=== PATIENT | male | born 1960 | race Caucasian/White ===

== ENCOUNTER 2017-06-07 14:29 | Inpatient (IN) | payer OTHER, SELFPAY ==
[2017-06-07 15:10] LABS: Hemoglobin 8.3 g/dL (14.0-18.0); Mean Corpuscular HGB CONC 29.8 g/dL (32.0-36.0); Mean Corpuscular Hemoglobin 24.7 pg (27.0-31.0); Mean Platelet Volume 7.4 fL (7.4-10.4); Platelet Count 197 thou/uL (130-400); RBC Distribution Width 18.6 % (11.5-14.5); Red Blood Cell (RBC) Count 3.34 mill/uL (4.70-6.10); White Blood Cell (WBC) Count 11.3 thou/uL (4.8-10.8)
[2017-06-07 15:29] LABS: #Basophils 0.1 thou/uL (0.0-0.2); #Eosinphils 0.1 thou/uL (0.0-0.7); #Lymphocytes 1.9 thou/uL (1.20-3.40); #Monocytes 0.4 thou/uL (0.11-0.59); #Neutrophils 8.9 thou/uL (1.40-6.50); %Basophils 0.7 % (0.0-1.0); %Eosinophils 0.5 % (0.0-10.0); %Lymphocytes 16.4 % (21.0-51.0); %Monocytes 3.9 % (0.0-10.0); %Neutrophils 78.5 % (42.0-75.0); Anisocytosis SLIGHT = 6-15 cells (100X) (0-5/hpf); MDiff Complete? YES; Microcytosis SLIGHT = 6-15 cells (100X) (0-5/hpf); PLT Morphology Comment Appears Adequate
[2017-06-07 15:36] LABS: CKMB 0.3 ng/mL (0-6.6); Troponin I Less than 0.010 ng/mL (< 0.028)
[2017-06-07 15:42] LABS: ALT (SGPT) 38 U/L (8-55); AST (SGOT) 30 U/L (5-34); Alkaline Phosphatase 405 U/L (40-150); Anion Gap 17 mmol/L (10-20); BUN (Urea Nitrogen) 13 mg/dL (8.4-25.7); Bilirubin, Total 1.4 mg/dL (0.2-1.2); CK (CPK) 19 U/L (30-200); Calc. Creatinine Clearance 0 mL/min (70-130); Calcium 8.7 mg/dL (7.8-10.44); Carbon Dioxide 20 mmol/L (22-29); Chloride 99 mmol/L (98-107); Estimated GFR-MDRD Greater than 90; Globulin 4.1 g/dL (2.4-3.5); Glucose 106 mg/dL (70-105); Potassium 4.3 mmol/L (3.5-5.1); Protein, Total 7.1 g/dL (6.0-8.3); Sodium 132 mmol/L (136-145)
--- NOTE | 2017-06-07 16:10 | RAD ---
PORTABLE CHEST ONE VIEW: 06/07/2017 4;04 p.m. HISTORY: A 57-year-old male with anemia, lymphoma, and shortness of breath. COMPARISON: There are no previous exams for comparison. FINDINGS: The heart size is mildly enlarged. There are mild infiltrates in the left lower lung. No pneumothor ax or pleural effusions are seen. IMPRESSION: Findings are suspicious for pneumonia. POS: [facility]
[2017-06-07] MEDS ORDERED: Acetaminophen 500 MG TAB ONE (16:29)
[2017-06-07] MEDS ORDERED: Guaifenesin DM 100-10/5 ML UDCUP PO PRN (19:40)
[2017-06-07] MEDS ORDERED: Albuterol Sulfate 1.25 MG/3 ML NEB NEB PRN (19:40)
[2017-06-07 20:44] LABS: Iron 19 ug/dL (65-175); Iron Binding Capacity, Total 200 mcg/dL (261-462); LDH 221 U/L (125-220)
[2017-06-07 21:21] LABS: Folate (Folic Acid) 3.5 ng/mL (7.0-31.4)
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
[2017-06-07] MEDS: Famotidine 20 MG TAB PO SCH (22:18)
[2017-06-07] MEDS: Sodium Chloride 0.9% 1,000 ML IV SCH (22:21)
[2017-06-07 23:36] VITALS: BMI 23.8
[2017-06-08] MEDS: Acetaminophen 325 MG TAB PO PRN ×3 (05:19→21:41)
[2017-06-08 06:03] LABS: #Eosinphils 0.1 thou/uL (0.0-0.7); #Lymphocytes 1.4 thou/uL (1.20-3.40); #Monocytes 0.7 thou/uL (0.11-0.59); #Neutrophils 6.3 thou/uL (1.40-6.50); %Basophils 0.2 % (0.0-1.0); %Eosinophils 0.6 % (0.0-10.0); %Lymphocytes 16.5 % (21.0-51.0); %Monocytes 8.2 % (0.0-10.0); %Neutrophils 74.5 % (42.0-75.0); Hemoglobin 6.2 g/dL (14.0-18.0); Mean Corpuscular HGB CONC 30.6 g/dL (32.0-36.0); Mean Corpuscular Hemoglobin 25.3 pg (27.0-31.0); Mean Corpuscular Volume 82.5 fl (80.0-94.0); Mean Platelet Volume 6.9 fL (7.4-10.4); Platelet Count 156 thou/uL (130-400); RBC Distribution Width 18.7 % (11.5-14.5); Red Blood Cell (RBC) Count 2.45 mill/uL (4.70-6.10); White Blood Cell (WBC) Count 8.5 thou/uL (4.8-10.8)
[2017-06-08 06:26] LABS: Anion Gap 11 mmol/L (10-20); BUN (Urea Nitrogen) 11 mg/dL (8.4-25.7); Calc. Creatinine Clearance 140 mL/min (70-130); Carbon Dioxide 23 mmol/L (22-29); Chloride 101 mmol/L (98-107); Estimated GFR-MDRD Greater than 90; Glucose 90 mg/dL (70-105); Potassium 4.2 mmol/L (3.5-5.1); Sodium 131 mmol/L (136-145)
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
[2017-06-08] MEDS: Sodium Chloride 0.9% 1,000 ML IV SCH ×2 (10:22→21:53)
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
[2017-06-08] MEDS: Enoxaparin Sodium 40 MG/0.4 ML SYRINGE SC SCH (11:12)
[2017-06-08] MEDS: Famotidine 20 MG TAB PO SCH ×2 (11:12→21:42)
--- NOTE | 2017-06-08 15:22 | PDOC.PN ---
- Subjective Encounter Start Date: 06/08/17 Encounter Start Time: 15:21 Subjective: feels a little better. appetite good.no SOB.fever on & off -: weakness - Objective Resuscitation Status: Resuscitation Status FULL:Full Resuscitation MAR Reviewed: Yes Vital Signs & Weight: Vital Signs (12 hours) Temp Pulse Pulse Resp BP BP Pulse Ox 06/08/17 12:52 98.8 F 69 18 132/77 06/08/17 12:50 98.3 F 82 18 117/67 06/08/17 10:45 98.8 F 69 18 132/77 06/08/17 10:30 98.0 F 71 18 126/76 06/08/17 08:00 98.6 F 71 20 124/71 98 06/08/17 06:48 99.5 F 06/08/17 04:00 102.3 F H 101 H 18 129/73 98 Weight Weight 175 lb 11.2 oz I&O: 06/07/17 06/08/17 06/09/17 06:59 06:59 06:59 Intake Total 678 470 Output Total 350 Balance 328 470 Result Diagrams: 06/08/17 05:31 06/08/17 05:31 Additional Labs: Laboratory Tests 06/07/17 06/07/17 14:57 20:13 Iron 19 L TIBC 200 L % Saturation 10 L Total Bilirubin 1.4 H Alkaline Phosphatase 405 H Lactate Dehydrogenase 221 H Phys Exam - Physical Examination Constitutional: NAD pale ,weak HEENT: PERRLA, moist MMs, sclera anicteric, TM's clear, oral pharynx no lesions , 2+ tonsils Neck: no JVD, supple, full ROM Respiratory: no wheezing, no rales, no rhonchi, clear to auscultation bilateral Cardiovascular: RRR, no significant murmur Gastrointestinal: soft, non-tender, no distention, positive bowel sounds Musculoskeletal: no edema, pulses present Neurological: non-focal, normal sensation, moves all 4 limbs Psychiatric: normal affect, A&O x 3 Skin: no rash Dx/Plan (1) Sepsis Code(s): A41.9 - SEPSIS, UNSPECIFIED ORGANISM Status: Suspected (2) PNA (pneumonia) Code(s): J18.9 - PNEUMONIA, UNSPECIFIED ORGANISM Status: Acute (3) ESPERANZA (iron deficiency anemia) Code(s): D50.9 - IRON DEFICIENCY ANEMIA, UNSPECIFIED Status: Acute (4) Weight loss Status: Acute (5) Malnutrition Code(s): E46 - UNSPECIFIED PROTEIN-CALORIE MALNUTRITION Status: Acute (6) Lymphadenopathy Code(s): R59.1 - GENERALIZED ENLARGED LYMPH NODES Status: Acute - Plan plan discussed w/ family, continue antibiotics, respiratory therapy, incentive spirometry, out of bed/ambulate, DVT proph w/SCDs H/h dropped this am.receiving 2 units PRBC.Gi eval appreciated. -: Colonoscopy on Monday.monitor H/H.? GIB Vs BM issue -: HSM w LAP-LN Biopsy by GS tomorrow. -: cont empiric ABx & supportive care -: am labs * . Review of Systems - Review of Systems Constitutional: fever, chills, sweats, weakness, malaise Respiratory: Cough, SOB with Excertion. negative: Dry, Shortness of Breath, Hemoptysis, Pleuritic Pain, Sputum, Wheezing Cardiovascular: negative: chest pain, palpitations, orthopnea, paroxysmal nocturnal dyspnea, edema, light headedness, other Gastrointestinal: negative: Nausea, Vomiting, Abdominal Pain, Diarrhea, Constipation, Melena, Hematochezia, Other Genitourinary: negative: Dysuria, Frequency, Incontinence, Hematuria, Retention , Other Musculoskeletal: negative: Neck Pain, Shoulder Pain, Arm Pain, Back Pain, Hand Pain, Leg Pain, Foot Pain, Other Neurological: negative: Weakness, Numbness, Incoordination, Change in Speech, Confusion, Seizures, Other - Medications/Allergies Allergies/Adverse Reactions: Allergies Allergy/AdvReac Type Severity Reaction Status Date / Time Penicillins Allergy Verified 06/07/17 23:32 Medications: Current Medications Acetaminophen (Tylenol) 650 mg PO Q4H PRN PRN Reason: Headache/Fever or Pain Last Admin: 06/08/17 05:19 Dose: 650 mg Albuterol Sulfate (Albuterol Sulfate) 1.25 mg NEB [id number] PRN PRN Reason: Wheezing Enoxaparin Sodium (Lovenox) 40 mg SC 0900 [facility] Last Admin: 06/08/17 11:12 Dose: Not Given Famotidine (Pepcid) 20 mg PO BID [facility] Last Admin: 06/08/17 11:12 Dose: Not Given Guaifenesin/Dextromethorphan (Robitussin Dm) 15 ml PO Q4H PRN PRN Reason: Cough Sodium Chloride (Normal Saline 0.9%) 1,000 mls @ 80 mls/hr IV .[id number] [facility] Last Admin: 06/08/17 10:22 Dose: 1,000 mls Levofloxacin 750 mg/ Device 150 mls @ 100 mls/hr IVPB 2000 [facility] Polyethylene Glycol/Electrolytes (Golytely) 4,000 ml PO 1800 [facility] Stop: 06/10/17 06:00 Sodium Chloride (Flush - Normal Saline) 10 ml IVF PRN PRN PRN Reason: Saline Flush
[2017-06-08] MEDS ORDERED: Ibuprofen 200 MG TAB PO PRN (16:53)
[2017-06-08] MEDS: Temazepam 15 MG CAP PO PRN (21:41)
[2017-06-09 05:52] LABS: #Lymphocytes 1.3 thou/uL (1.20-3.40); #Monocytes 0.7 thou/uL (0.11-0.59); #Neutrophils 6.1 thou/uL (1.40-6.50); %Basophils 0.2 % (0.0-1.0); %Eosinophils 0.5 % (0.0-10.0); %Lymphocytes 16.3 % (21.0-51.0); %Monocytes 8.9 % (0.0-10.0); %Neutrophils 74.1 % (42.0-75.0); Hemoglobin 8.3 g/dL (14.0-18.0); Mean Corpuscular Hemoglobin 26.3 pg (27.0-31.0); Mean Corpuscular Volume 84.9 fl (80.0-94.0); Mean Platelet Volume 7.1 fL (7.4-10.4); Platelet Count 149 thou/uL (130-400); RBC Distribution Width 18.2 % (11.5-14.5); Red Blood Cell (RBC) Count 3.16 mill/uL (4.70-6.10); White Blood Cell (WBC) Count 8.2 thou/uL (4.8-10.8)
[2017-06-09 06:18] LABS: Anion Gap 12 mmol/L (10-20); BUN (Urea Nitrogen) 11 mg/dL (8.4-25.7); Calc. Creatinine Clearance 156 mL/min (70-130); Calcium 8.1 mg/dL (7.8-10.44); Carbon Dioxide 25 mmol/L (22-29); Chloride 103 mmol/L (98-107); Estimated GFR-MDRD Greater than 90; Glucose 99 mg/dL (70-105); Potassium 3.7 mmol/L (3.5-5.1); Sodium 136 mmol/L (136-145)
[2017-06-09] MEDS: Sodium Chloride 0.9% 1,000 ML IV SCH ×2 (06:40→21:12)
[2017-06-09] MEDS ORDERED: Lidocaine 1% PF 5 ML VIAL ONE (08:59)
[2017-06-09] MEDS ORDERED: Dexamethasone 20 MG/5 ML VIAL ONE (08:59)
[2017-06-09] MEDS ORDERED: Ondansetron HCl/PF 4 MG/2 ML Vial ONE (08:59)
[2017-06-09] MEDS ORDERED: Propofol 200 MG/20 ML VIAL ONE (08:59)
[2017-06-09] MEDS ORDERED: PHENYLEPHRINE-NS 100 MCG/ML 10 ML SYRINGE ONE (08:59)
[2017-06-09] MEDS ORDERED: Midazolam HCl 2 mg/2 ml Vial ONE (09:14)
[2017-06-09] MEDS ORDERED: Fentanyl 100 MCG/2 ML VIAL ONE (09:21)
[2017-06-09] MEDS ORDERED: Bupivacaine/Epinephrine 0.25% 30 ML VIAL ONE (09:22)
[2017-06-09] MEDS ORDERED: Promethazine HCl 25 MG/ML VIAL SLOW IVP PRN (10:01)
[2017-06-09] MEDS ORDERED: HYDROmorphone 2 MG/ML VIAL SLOW IVP PRN (10:01)
[2017-06-09] MEDS ORDERED: Morphine Sulfate 2 MG/ML SYRINGE SLOW IVP PRN (10:01)
[2017-06-09] MEDS ORDERED: Meperidine HCl/PF 25 MG/ML VIAL SLOW IVP PRN (10:01)
[2017-06-09] MEDS ORDERED: HYDROcodone/Acetaminophen 10/325 mg Tablet PO PRN ×2 (10:44)
[2017-06-09] MEDS ORDERED: Ondansetron HCl/PF 4 MG/2 ML Vial IVP PRN (10:46)
--- NOTE | 2017-06-09 10:51 | OP ---
PREOPERATIVE DIAGNOSIS: Adenopathy. SURGEON: Bubba Davis M.D. PROCEDURE PERFORMED: Left axillary lymph node biopsy. INDICATIONS: This is a 57-year-old male who presented with weight loss, fever, and generalized adeno amberly, the largest of which was his left axillary node. FINDINGS: A 6 cm left axillary lymph node. PROCEDURE IN DETAIL: After informed consent was obtained, the patient was taken to the operating pillo m and given general endotracheal anesthesia, placed in the supine position. His axilla and chest wer e prepped and draped in the usual fashion. Local anesthesia infiltrated subcutaneously and deep. A transverse axillary incision was performed. Subcu divided sharply. The deltopectoral fascia was inc ised. This large lymph node was carefully dissected out. There were a lot of veins that went to it. These were clipped with Hemoclips and divided. The lymphatics clipped and divided. Larger ones we re tied between clamps with 3-0 Vicryl ties. Eventually, this large mass was excised and sent to [facility] for further analysis. Hemostasis was assured. The wound irrigated. Subcutaneous reapproxima benjamín with interrupted 3-0 Vicryl. Skin closed with a running subcuticular 4-0 Rapide. Dermabond appl ied. The patient tolerated the procedure well and transferred to recovery in good condition. Sponge and needle count verified correct x2.
[2017-06-09] MEDS ORDERED: Morphine 2 MG/ML SYRINGE SLOW IVP PRN (10:54)
[2017-06-09] MEDS ORDERED: Morphine 4 MG/ML VIAL SLOW IVP PRN (11:00)
[2017-06-09] MEDS: Famotidine 20 MG TAB PO SCH ×2 (11:59→21:03)
[2017-06-09] MEDS: Enoxaparin Sodium 40 MG/0.4 ML SYRINGE SC SCH (12:01)
--- NOTE | 2017-06-09 14:56 | PDOC.PN ---
- Subjective Encounter Start Date: 06/09/17 Encounter Start Time: 14:54 Subjective: feels better. s/p LN biopsy .no pain. -: fever persists w sweats on and off - Objective Resuscitation Status: Resuscitation Status FULL:Full Resuscitation MAR Reviewed: Yes Vital Signs & Weight: Vital Signs (12 hours) Temp Pulse Resp BP Pulse Ox 06/09/17 11:20 97.4 F L 62 18 117/72 99 06/09/17 08:00 97.4 F L 62 18 99 06/09/17 04:00 93 20 131/77 98 Weight Weight 175 lb 11.2 oz I&O: 06/08/17 06/09/17 06/10/17 06:59 06:59 06:59 Intake Total 678 1500 360 Output Total 350 250 Balance 328 1250 360 Result Diagrams: 06/09/17 05:05 06/09/17 05:05 Additional Labs: Microbiology 06/07/17 17:52 Nasal swab Influenza Types A,B Direct EIA - Final 06/07/17 18:15 Venous blood - Left Arm Blood Culture - Preliminary Specimen has been received and culture in progress. No Growth to date. 06/07/17 18:11 Venous blood - Right Arm Blood Culture - Preliminary Specimen has been received and culture in progress. No Growth to date. Phys Exam - Physical Examination Constitutional: NAD tearful HEENT: PERRLA, moist MMs, sclera anicteric, TM's clear, oral pharynx no lesions , 2+ tonsils Neck: no nodes, no JVD, supple, full ROM Respiratory: no wheezing, no rales, no rhonchi, clear to auscultation bilateral Cardiovascular: RRR, no significant murmur Gastrointestinal: soft, non-tender, no distention, positive bowel sounds Musculoskeletal: no edema, pulses present Neurological: non-focal, normal sensation, moves all 4 limbs Psychiatric: normal affect, A&O x 3 Skin: no rash Dx/Plan (1) PNA (pneumonia) Code(s): J18.9 - PNEUMONIA, UNSPECIFIED ORGANISM Status: Acute (2) ESPERANZA (iron deficiency anemia) Code(s): D50.9 - IRON DEFICIENCY ANEMIA, UNSPECIFIED Status: Acute (3) Weight loss Status: Acute (4) Malnutrition Code(s): E46 - UNSPECIFIED PROTEIN-CALORIE MALNUTRITION Status: Acute (5) Lymphadenopathy Code(s): R59.1 - GENERALIZED ENLARGED LYMPH NODES Status: Acute Comment: ? Lymphoma. S/P Axillary LN Biopsy 06/09/17 (6) Sepsis Code(s): A41.9 - SEPSIS, UNSPECIFIED ORGANISM Status: Suspected (7) GI bleed Code(s): K92.2 - GASTROINTESTINAL HEMORRHAGE, UNSPECIFIED Status: Suspected - Plan DVT proph w/SCDs Follow path report.cont empiric ABx. Cx negative so far -: colonoscopy tomorrow to r/o GI source of anemia -: hemodynamically stable. -: likely Dc montse eafter colonoscopy if reports NL -: am labs.supportive care * . Review of Systems - Review of Systems Constitutional: fever, chills, sweats, weakness, malaise Respiratory: negative: Cough, Dry, Shortness of Breath, Hemoptysis, SOB with Excertion, Pleuritic Pain, Sputum, Wheezing Cardiovascular: negative: chest pain, palpitations, orthopnea, paroxysmal nocturnal dyspnea, edema, light headedness, other Gastrointestinal: negative: Nausea, Vomiting, Abdominal Pain, Diarrhea, Constipation, Melena, Hematochezia, Other Genitourinary: negative: Dysuria, Frequency, Incontinence, Hematuria, Retention , Other Musculoskeletal: negative: Neck Pain, Shoulder Pain, Arm Pain, Back Pain, Hand Pain, Leg Pain, Foot Pain, Other Neurological: negative: Weakness, Numbness, Incoordination, Change in Speech, Confusion, Seizures, Other - Medications/Allergies Allergies/Adverse Reactions: Allergies Allergy/AdvReac Type Severity Reaction Status Date / Time Penicillins Allergy Verified 06/07/17 23:32 Medications: Current Medications Acetaminophen (Tylenol) 650 mg PO Q4H PRN PRN Reason: Headache/Fever or Pain Last Admin: 06/08/17 21:41 Dose: 650 mg Hydrocodone Bitart/Acetaminophen ([place] 10/325) 1 tab PO Q4H PRN PRN Reason: Mild-Moderate Pain (1-5) Hydrocodone Bitart/Acetaminophen ([place] 10/325) 2 tab PO Q4H PRN PRN Reason: Moderate to Severe Pain (6-10) Albuterol Sulfate (Albuterol Sulfate) 1.25 mg NEB [id number] PRN PRN Reason: Wheezing Enoxaparin Sodium (Lovenox) 40 mg SC 0900 [facility] Last Admin: 06/09/17 12:01 Dose: Not Given Famotidine (Pepcid) 20 mg PO BID [facility] Last Admin: 06/09/17 11:59 Dose: 20 mg Guaifenesin/Dextromethorphan (Robitussin Dm) 15 ml PO Q4H PRN PRN Reason: Cough Sodium Chloride (Normal Saline 0.9%) 1,000 mls @ 80 mls/hr IV .[id number] [facility] Last Admin: 06/09/17 06:40 Dose: 1,000 mls Levofloxacin 750 mg/ Device 150 mls @ 100 mls/hr IVPB 2000 [facility] Last Admin: 06/08/17 21:40 Dose: 150 mls Levofloxacin 500 mg/ Device 100 mls @ 100 mls/hr IVPB [facility] Stop: 06/09/17 16:46 Ibuprofen (Motrin) 200 mg PO BID PRN PRN Reason: fever Last Admin: 06/08/17 23:44 Dose: 200 mg Morphine Sulfate (Morphine) 2 mg SLOW IVP Q4H PRN PRN Reason: Mild-Moderate Pain (1-5) Morphine Sulfate (Morphine) 4 mg SLOW IVP Q4H PRN PRN Reason: Severe Pain (7-10) Ondansetron HCl (Zofran) 4 mg IVP Q6H PRN PRN Reason: Nausea/Vomiting Polyethylene Glycol/Electrolytes (Golytely) 4,000 ml PO 1800 [facility] Stop: 06/10/17 06:00 Sodium Chloride (Flush - Normal Saline) 10 ml IVF PRN PRN PRN Reason: Saline Flush Temazepam (Restoril) 15 mg PO HS PRN PRN Reason: Insomnia Last Admin: 06/08/17 21:41 Dose: 15 mg
[2017-06-09] MEDS ORDERED: GoLYTELY 4,000 ml Bottle PO SCH (18:00)
[2017-06-10] MEDS ORDERED: Propofol 200 MG/20 ML VIAL ONE (09:14)
[2017-06-10] MEDS: Enoxaparin Sodium 40 MG/0.4 ML SYRINGE SC SCH (10:18)
[2017-06-10] MEDS: Sodium Chloride 0.9% 1,000 ML IV SCH ×2 (12:04→20:17)
[2017-06-10] MEDS: Famotidine 20 MG TAB PO SCH ×2 (14:02→20:18)
[2017-06-10 14:12] LABS: A/G Ratio 0.6 (0.7-1.7); Alpha 1 0.5 g/dL (0.0-0.4); Alpha 2 0.9 g/dL (0.4-1.0); Globulin, Total 3.5 g/dL (2.2-3.9); M-Spike Not Observed g/dL (Not Observed)
--- NOTE | 2017-06-10 15:07 | PDOC.PN ---
- Subjective Encounter Start Date: 06/10/17 Encounter Start Time: 15:06 Subjective: s/o colonoscopy and EGD-reports that it was normal -: no new complaints.feels better than prior to admission -: no fever overnight - Objective Resuscitation Status: Resuscitation Status FULL:Full Resuscitation MAR Reviewed: Yes Vital Signs & Weight: Vital Signs (12 hours) Temp Pulse Resp BP Pulse Ox 06/10/17 08:00 98.2 F 67 18 100 06/10/17 07:57 98.2 F 67 18 117/70 100 06/10/17 04:03 98.1 F 76 20 107/64 93 L Weight Weight 175 lb 11.2 oz I&O: 06/09/17 06/10/17 06/11/17 06:59 06:59 06:59 Intake Total 1500 4440 240 Output Total 250 Balance 1250 4440 240 Result Diagrams: 06/09/17 05:05 06/09/17 05:05 Additional Labs: Microbiology 06/07/17 17:52 Nasal swab Influenza Types A,B Direct EIA - Final 06/07/17 18:15 Venous blood - Left Arm Blood Culture - Preliminary Specimen has been received and culture in progress. No Growth to date. 06/07/17 18:15 Venous blood - Left Arm Blood Culture - Preliminary NO GROWTH AT 48 HOURS 06/07/17 18:11 Venous blood - Right Arm Blood Culture - Preliminary Specimen has been received and culture in progress. No Growth to date. 06/07/17 18:11 Venous blood - Right Arm Blood Culture - Preliminary NO GROWTH AT 48 HOURS Laboratory Tests 06/07/17 20:13 Total Protein (KAY) 5.5 L Albumin (KAY) 2.0 L Phys Exam - Physical Examination Constitutional: NAD HEENT: PERRLA, moist MMs, sclera anicteric, oral pharynx no lesions Neck: no nodes, no JVD, supple, full ROM Respiratory: no wheezing, no rales, no rhonchi, clear to auscultation bilateral Cardiovascular: RRR, no significant murmur, no rub, gallop Gastrointestinal: soft, non-tender, no distention, positive bowel sounds Musculoskeletal: no edema, pulses present Neurological: non-focal, normal sensation, moves all 4 limbs Psychiatric: normal affect, A&O x 3 Skin: no rash Dx/Plan (1) PNA (pneumonia) Code(s): J18.9 - PNEUMONIA, UNSPECIFIED ORGANISM Status: Acute (2) ESPERANZA (iron deficiency anemia) Code(s): D50.9 - IRON DEFICIENCY ANEMIA, UNSPECIFIED Status: Acute (3) Weight loss Status: Acute (4) Malnutrition Code(s): E46 - UNSPECIFIED PROTEIN-CALORIE MALNUTRITION Status: Acute (5) Lymphadenopathy Code(s): R59.1 - GENERALIZED ENLARGED LYMPH NODES Status: Acute Comment: ? Lymphoma. S/P Axillary LN Biopsy 06/09/17 (6) Sepsis Code(s): A41.9 - SEPSIS, UNSPECIFIED ORGANISM Status: Suspected (7) GI bleed Code(s): K92.2 - GASTROINTESTINAL HEMORRHAGE, UNSPECIFIED Status: Suspected - Plan continue antibiotics, out of bed/ambulate, DVT proph w/SCDs LN Bx results pending.? Lymphoma -: cont empiric ABx -: hemodynamically stable. -: likely DC home in am on PO ABx if ok w GI and GS -: am labs.start folic acid * . Review of Systems - Review of Systems Constitutional: weakness, malaise. negative: fever, chills, sweats, other Respiratory: negative: Cough, Dry, Shortness of Breath, Hemoptysis, SOB with Excertion, Pleuritic Pain, Sputum, Wheezing Cardiovascular: negative: chest pain, palpitations, orthopnea, paroxysmal nocturnal dyspnea, edema, light headedness, other Gastrointestinal: negative: Nausea, Vomiting, Abdominal Pain, Diarrhea, Constipation, Melena, Hematochezia, Other Genitourinary: negative: Dysuria, Frequency, Incontinence, Hematuria, Retention , Other Musculoskeletal: negative: Neck Pain, Shoulder Pain, Arm Pain, Back Pain, Hand Pain, Leg Pain, Foot Pain, Other Neurological: negative: Weakness, Numbness, Incoordination, Change in Speech, Confusion, Seizures, Other - Medications/Allergies Allergies/Adverse Reactions: Allergies Allergy/AdvReac Type Severity Reaction Status Date / Time Penicillins Allergy Verified 06/07/17 23:32 Medications: Current Medications Acetaminophen (Tylenol) 650 mg PO Q4H PRN PRN Reason: Headache/Fever or Pain Last Admin: 06/08/17 21:41 Dose: 650 mg Hydrocodone Bitart/Acetaminophen (Paris 10/325) 1 tab PO Q4H PRN PRN Reason: Mild-Moderate Pain (1-5) Hydrocodone Bitart/Acetaminophen (Paris 10/325) 2 tab PO Q4H PRN PRN Reason: Moderate to Severe Pain (6-10) Albuterol Sulfate (Albuterol Sulfate) 1.25 mg NEB [id number] PRN PRN Reason: Wheezing Enoxaparin Sodium (Lovenox) 40 mg SC 0900 [facility] Last Admin: 06/10/17 10:18 Dose: Not Given Famotidine (Pepcid) 20 mg PO BID [facility] Last Admin: 06/10/17 14:02 Dose: Not Given Folic Acid (Folvite) 1 mg PO DAILY [facility] Guaifenesin/Dextromethorphan (Robitussin Dm) 15 ml PO Q4H PRN PRN Reason: Cough Sodium Chloride (Normal Saline 0.9%) 1,000 mls @ 80 mls/hr IV .[id number] [facility] Last Admin: 06/10/17 12:04 Dose: Not Given Levofloxacin 750 mg/ Device 150 mls @ 100 mls/hr IVPB 2000 [facility] Last Admin: 06/09/17 21:04 Dose: 150 mls Ibuprofen (Motrin) 200 mg PO BID PRN PRN Reason: fever Last Admin: 06/08/17 23:44 Dose: 200 mg Morphine Sulfate (Morphine) 2 mg SLOW IVP Q4H PRN PRN Reason: Mild-Moderate Pain (1-5) Morphine Sulfate (Morphine) 4 mg SLOW IVP Q4H PRN PRN Reason: Severe Pain (7-10) Ondansetron HCl (Zofran) 4 mg IVP Q6H PRN PRN Reason: Nausea/Vomiting Sodium Chloride (Flush - Normal Saline) 10 ml IVF PRN PRN PRN Reason: Saline Flush Temazepam (Restoril) 15 mg PO HS PRN PRN Reason: Insomnia Last Admin: 06/08/17 21:41 Dose: 15 mg
--- NOTE | 2017-06-10 16:00 | OP ---
PREOPERATIVE DIAGNOSIS: Anemia. DESCRIPTION OF PROCEDURE: After informed consent was obtained, the patient was placed in the left la teral decubitus position. Anesthesia administered per the Anesthesia Department. Forward viewing en doscope was inserted esophagus under direct visualization with ease and passed to the second portion of the duodenum with ease. Second portion of the duodenum and duodenal bulb were normal. The pyloru s, antrum, body, fundus, and cardia were normal. Retroflexion of the stomach was normal. Esophagus was normal throughout. ASSESSMENT: Normal esophagogastroduodenoscopy. RECOMMENDATIONS: Proceed with colonoscopy. DESCRIPTION OF PROCEDURE: After informed consent was obtained, the patient was placed in the left la teral decubitus position. Anesthesia administered per the Anesthesia Department. Forward viewing en doscope was inserted into the rectum after perianal inspection and rectal exam were normal. It was p assed to the cecum, ileocecal valve, and appendiceal orifice was normal. The prep was good. There w as some solid material over on the left side, but overall the poor prep was still good. The ascendin g, transverse, descending, sigmoid, and rectum were normal. Retroflexion in rectum was normal. ASSESSMENT: Normal colonoscopy. RECOMMENDATION: 1. Continue treatment for the patient's lymphoma. 2. Stable from GI standpoint for discharge.
[2017-06-10] MEDS: Acetaminophen 325 MG TAB PO PRN (17:24)
--- NOTE | 2017-06-10 18:24 | PRG ---
DATE OF SERVICE: 06/10/2017 SUBJECTIVE: The patient is being seen as coverage over the weekend for Dr. Davis. The patient is po stop day #1, status post left axillary lymph node excision. No biopsy. Overnight, the patient has h ad no issues. He is tolerating a diet. He is not complaining of any pain. His wound is clean, dry, and intact. There is no surrounding evidence of infection. The extremity is neurovascularly intact x4. ASSESSMENT AND PLAN: Status post left axillary lymph node excisional biopsy. Plan will be to contin ue local wound care. The patient will follow up with Dr. Davis for pathologic report and results. F rom surgical standpoint, the patient may be discharged at any time.
[2017-06-10] MEDS: Temazepam 15 MG CAP PO PRN (22:24)
[2017-06-11] MEDS: Acetaminophen 325 MG TAB PO PRN (05:11)
[2017-06-11] MEDS: Famotidine 20 MG TAB PO SCH (07:31)
[2017-06-11] MEDS: Enoxaparin Sodium 40 MG/0.4 ML SYRINGE SC SCH (07:31)
[2017-06-11] MEDS ORDERED: Folic Acid 1 MG TAB PO SCH (09:00)
[2017-06-11 09:34] VITALS: BP 123/74; TEMP 98
[2017-06-11] MEDS: Sodium Chloride 0.9% 1,000 ML IV SCH (10:47)
--- NOTE | 2017-06-11 22:53 | DIS ---
DATE OF ADMISSION: 06/07/2017 DATE OF DISCHARGE: 06/11/2017 DISCHARGE DISPOSITION: Home. PRIMARY CARE PHYSICIAN: None. DISCHARGE FOLLOWUP: General Surgery, Dr. Davis. INHOUSE CONSULTATION: 1. General Surgery. 2. Gastroenterology, Dr. Luis. DISCHARGE DIAGNOSES: 1. Diffuse lymphadenopathy status post axillary lymph node biopsy. Questionable lymphoma. 2. Acute iron deficiency anemia of unclear etiology, likely bone marrow disorder, status post transf usion. 3. Pneumonia. 4. Febrile illness. 5. Malnutrition. 6. Suspected gastrointestinal bleed. 7. Sepsis, suspected. DISCHARGE MEDICATIONS: Levofloxacin 500 mg p.o. daily for 5 more days, folic acid 1 mg p.o. daily, F lorastor 250 mg p.o. daily for 10 days, and temazepam 15 mg at bedtime, ferrous sulfate 325 mg p.o. b .i.d. PROCEDURES IN THE HOSPITAL: Include; 1. EGD and colonoscopy both are unremarkable without evidence of any acute bleed. 2. Axillary lymph node biopsy, pathology reports are pending. HISTORY OF PRESENTING ILLNESS: Mr. Crandall is a very pleasant 57-year-old male without any s ignificant past medical history, who presented to the emergency room for complaints of weight loss, f ever, chills, and loss of appetite ongoing for many months. He recently was seen at [facility]. There is CT scan was done, which showed hepatosplenomegaly and numerous ill-defined mass in the spleen along with multiple retroperitoneal and iliac adenopathy concerning for metastasis and lymphom a. He was admitted for further evaluation and also because his chest x-ray showed questionable infil trate in the left lower lobe. General Surgery was consulted and he was started on empiric antibiotic and cultures were obtained. Please see admission history and physical for further details. HOSPITAL COURSE: The patient was continued on IV antibiotic. He started to have on and off fever, w hile in the hospital. He underwent lymph node biopsy by Dr. Davis with results are pending. He was also found to have profound anemia on the day after admission with his hemoglobin dropping to 6.2 fro m 8.3. He was transfused 2 units of packed RBCs and after that his hemoglobin stabilized and stated the same around 8 or so. Because of this GI was consulted and he underwent EGD and colonoscopy, [facility] was unremarkable for any evidence of bleeding. Eventually, had some improvement in his symptoms, but the fever persisted at low grade on and off. T his is thought to be secondary to his presumptive diagnosis of lymphoma. He will follow up with Dr. Davis as an outpatient with the results of the biopsy. I have instructed him very strongly to make a n appointment with the primary care physician for future purposes. He will get a CBC repeated prior to his visit with Dr. Davis. He was seen and examined prior to discharge. PHYSICAL EXAMINATION: VITAL SIGNS: Shows stable vital signs with blood pressure 123/74, heart rate of 66. No acute distre ss. CHEST: Clear to auscultation, no wheezing. Rate and rhythm is regular. NEUROLOGIC: Nonfocal. ABDOMEN: Stomach is soft, nontender, nondistended. LABORATORY DATA: Influenza testing negative. Blood culture negative x2. He is currently being discharged in a stable condition with outpatient followup instructions. Discha rge plan discussed with the patient and family and they verbalized understanding.
[2017-06-12 07:10] LABS: Albumin-Ur 13.8 % (.); Alpha 1 - Ur 8.2 % (.); Alpha 2 - Ur 22.4 % (.); Beta-Ur 26.3 % (.); Gamma-Ur 29.3 % (.); M-Spike,% Not Observed % (Not Observed); Protein, Urine 19.7 mg/dL (Not Estab.)
== END 2017-06-11 14:53 | disposition home or self-care (01) | DRG 854 ==
LOC: ERS 14:29 → T4-B 18:16
PROVIDERS: ADMIT Internal Medicine; ATTEND Internal Medicine
PROC: 07B60ZX Excision of Left Axillary Lymphatic, Open Approach, Diagnostic (ICD-10-PCS; 2017-06-09)
PROC: 0DJD8ZZ Inspection of Lower Intestinal Tract, Via Natural or Artificial Opening Endoscopic (ICD-10-PCS; principal; 2017-06-10)
PROC: 0DJ08ZZ Inspection of Upper Intestinal Tract, Via Natural or Artificial Opening Endoscopic (ICD-10-PCS; 2017-06-10)
DX: A41.9 Sepsis, unspecified organism (principal); C85.94 Non-Hodgkin lymphoma, unspecified, lymph nodes of axilla and upper limb; E46 Unspecified protein-calorie malnutrition; K92.2 Gastrointestinal hemorrhage, unspecified; D50.9 Iron deficiency anemia, unspecified; Z88.0 Allergy status to penicillin; Z82.49 Family history of ischemic heart disease and other diseases of the circulatory system; Z80.0 Family history of malignant neoplasm of digestive organs; Z68.23 Body mass index [BMI] 23.0-23.9, adult
CPT/HCPCS: 36415; 36430; 71045; 80048; 80053; 82553; 82607; 82728; 82746; 83540; 83550; 83615; 84165; 84166; 84484; 85025; 86850; 86900; 86901; 87040; 88184; 88307; 88333; 88341; 88342; 93005; 93306; 96365; J1100; J1650; J1956; J2001; J2250; J2405; J2704; J3010; P9016

== ENCOUNTER 2017-06-27 09:07 | Outpatient (CLI) | payer OTHER, SELFPAY ==
--- NOTE | 2017-06-29 11:09 | PFT ---
PATIENT HISTORY: HEIGHT: 72 WEIGHT: 170 SMOKER: NO HOW LONG: PACKS PER DAY PRODUCTIVE COUGH: NO LUNG DISEASE: PHYSICIAN INTERPRETATION FINAL REPORT: There is a moderate reduction in expiratory flows in vital capacity following bronchodilator therapy; there is no further improvement in flows. RV is normal. RV/TLC unremarkable. Gas transfer is reduced. IMPRESSION: 1. Mixed obstructive and restrictive pulmonary impairment. 2. Reduced diffusing capacity. Family And Consumer Science Professor: MILTON Gut Cleaner: MILTON WILKINSON
== END 2017-06-27 09:08 | disposition home or self-care (01) ==
LOC: CP 09:07
PROVIDERS: ATTEND Internal Medicine Medical Oncology
DX: C81.13 Nodular sclerosis Hodgkin lymphoma, intra-abdominal lymph nodes (principal); J44.9 Chronic obstructive pulmonary disease, unspecified; J98.4 Other disorders of lung; Z79.899 Other long term (current) drug therapy
CPT/HCPCS: 94060; 94727; 94729

== ENCOUNTER 2017-07-04 10:15 | Outpatient (CLI) | payer OTHER ==
[2017-07-04 11:43] LABS: ALT (SGPT) 16 U/L (8-55); AST (SGOT) 24 U/L (5-34); Albumin 3.2 g/dL (3.5-5.0); Alkaline Phosphatase 534 U/L (40-150); Anion Gap 11 mmol/L (10-20); BUN (Urea Nitrogen) 10 mg/dL (8.4-25.7); Bilirubin, Total 1.1 mg/dL (0.2-1.2); Calc. Creatinine Clearance 0 mL/min (70-130); Calcium 8.5 mg/dL (7.8-10.44); Carbon Dioxide 27 mmol/L (22-29); Chloride 99 mmol/L (98-107); Estimated GFR-MDRD Greater than 90; Globulin 3.1 g/dL (2.4-3.5); Glucose 102 mg/dL (70-105); Potassium 4.4 mmol/L (3.5-5.1); Protein, Total 6.3 g/dL (6.0-8.3); Sodium 133 mmol/L (136-145)
[2017-07-04 11:44] LABS: #Lymphocytes 1.2 thou/uL (1.20-3.40); #Monocytes 0.7 thou/uL (0.11-0.59); #Neutrophils 7.4 thou/uL (1.40-6.50); %Basophils 0.1 % (0.0-1.0); %Eosinophils 0.4 % (0.0-10.0); %Lymphocytes 13.1 % (21.0-51.0); %Monocytes 7.5 % (0.0-10.0); %Neutrophils 78.9 % (42.0-75.0); Hemoglobin 8.5 g/dL (14.0-18.0); Hypochromia SLIGHT = 6-15 cells (100X) (0-5/hpf); MDiff Complete? YES; Mean Corpuscular HGB CONC 29.9 g/dL (32.0-36.0); Mean Corpuscular Hemoglobin 26.3 pg (27.0-31.0); Mean Corpuscular Volume 87.8 fl (80.0-94.0); Mean Platelet Volume 6.5 fL (7.4-10.4); Ovalocytes SLIGHT = 2-5 cells (100X) (0-1/hpf); PLT Morphology Comment Appears Adequate; Platelet Count 199 thou/uL (130-400); Polychromasia SLIGHT = 2-3 cells (100X) (0-2/hpf); RBC Distribution Width 17.2 % (11.5-14.5); Red Blood Cell (RBC) Count 3.24 mill/uL (4.70-6.10); White Blood Cell (WBC) Count 9.4 thou/uL (4.8-10.8)
== END 2017-07-04 10:16 | disposition home or self-care (01) ==
LOC: LABBT 10:15
PROVIDERS: ATTEND Surgery
DX: Z01.810 Encounter for preprocedural cardiovascular examination (principal); C81.90 Hodgkin lymphoma, unspecified, unspecified site; Z88.0 Allergy status to penicillin
CPT/HCPCS: 80053; 85025; 93005; 93010

== ENCOUNTER 2017-07-05 09:04 | Outpatient (CLI) | payer SELFPAY ==
[2017-07-04 10:30] VITALS: BMI 21.5
--- NOTE | 2017-07-05 18:53 | PET ---
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 Exam was requested for initial staging. TECHNIQUE: PET scanning with CT attenuation correction was performed from the base of the brain through the prox imal thighs following the intravenous administration of 8.3 mCi [id number] in the right a ntecubital fossa. Imaging was performed after an uptake interval of 54 minutes. COMPARISON: None. FINDINGS: There are numerous hypermetabolic lymph nodes on either side of the diaphragm including the lower nec k, axilla (left greater than right), mediastinum, right paracardiac region, abdomen (retroperitoneum) , and pelvis. Focal increased uptake is also seen in the skeleton involving the sternum, left clavicle, right 8th r ib, and the thoracolumbar spine. There is a focal mass-like area of consolidation in the left lower lobe with increased FDG localizati on (SUV 3). There is enlargement of the spleen which measures 22 cm in length and diffusely increased uptake. Th e combination of diffuse uptake in the spleen without bone marrow uptake favors a diagnosis of spleni c involvement and lymphoma rather than a diagnosis of hemopoietic expansion. No hypermetabolic liver or adrenal lesions are seen. The CT scan used for attenuation correction demonstrates no evidence of pleural effusions or ascites. IMPRESSION: Findings are consistent with stage IV Hodgkin's lymphoma. POS: [facility]
== END 2017-07-05 09:05 | disposition home or self-care (01) ==
LOC: PET 09:04
PROVIDERS: ATTEND Internal Medicine Medical Oncology
DX: C81.13 Nodular sclerosis Hodgkin lymphoma, intra-abdominal lymph nodes (principal)
CPT/HCPCS: 78815; A9552

== ENCOUNTER 2017-07-06 05:41 | Day surgery (SDC) | payer OTHER ==
[2017-07-06] MEDS ORDERED: Levofloxacin 500 mg/D5W 100 ml Premix Bag ONE (06:27)
[2017-07-06] MEDS ORDERED: Bupivacaine 0.25% HCL 30 ML VIAL ONE (06:28)
[2017-07-06] MEDS ORDERED: Lidocaine 2% w/Epinephrine 1:200K 20 ML VIAL ONE (06:28)
[2017-07-06] MEDS ORDERED: Midazolam HCl 2 mg/2 ml Vial ONE (07:28)
[2017-07-06] MEDS ORDERED: Fentanyl 100 MCG/2 ML VIAL ONE (07:28)
[2017-07-06] MEDS ORDERED: HYDROmorphone 0.5 MG/0.5 ML SYRINGE ONE (07:28)
--- NOTE | 2017-07-06 09:56 | OP ---
PREOPERATIVE DIAGNOSIS: Hodgkin's lymphoma. SURGEON: Bubba Davis M.D. PROCEDURE PERFORMED: MediPort placement. INDICATIONS: This is a 57-year-old male recently diagnosed with widespread Hodgkin's lymphoma, needs access for chemotherapy. FINDINGS: Good backflow of venous blood, J-wire threaded easily and position confirmed by fluoroscop y. DESCRIPTION OF PROCEDURE: After informed consent was obtained, the patient was taken to the operatin g room and given general mask anesthesia, placed in the supine position. Chest and neck were prepped and draped in the usual fashion. Then the patient was placed in Trendelenburg position and local an esthesia infiltrated subcutaneously and deep. An Introducer needle was inserted in left subclavian w ith good backflow of venous blood. J-wire threaded easily. Fluoroscopy showed that the wire was in the superior vena cava. Skin and subcutaneous anesthetized with local anesthesia. Transverse chest wall incision performed. The subcu divided sharply and a pocket created sharply on the chest wall. The tunneling device used to connect the two incisions and the catheter brought through the tunnel. It was connected to the MediPort. The MediPort was then secured and the chest wall with interrupted with 2-0 Prolene suture. The system was accessed with the Estrada needle and flushed with heparinized saline. The catheter cut to size. The peel-away introducer inserted over the wire. The wire was re moved. The catheter inserted through the peel-away introducer and the peel-away introducer removed. Fluoroscopy again used showed good placement in the superior vena cava. Subcutaneous reapproximated with interrupted 3-0 Vicryl. Skin closed with a running subcuticular 4-0 Rapide. The MediPort was accessed with the Estrada needle, aspirated, good backflow of venous blood, flushed with saline, but le ft accessed, because he is going to receive chemo letter today. Sterile bandage applied. The patien t tolerated the procedure well and transferred to recovery in good condition. Sponge and needle coun t verified correct x2.
--- NOTE | 2017-07-06 10:12 | RAD ---
PORTABLE CHEST ONE VIEW: Date: 07-06-17 Time: 9:00 a.m. History: Mediport insertion. FINDINGS/IMPRESSION: Comparison made with exam of 06-07-17. There has been interval placement of a left subclavian port-a-cath with tip in the projection of the proximal SVC. There are chronic changes in the left lower lung. There are surgical clips in the left axilla. No pneumothorax is seen. No large effusions or focal areas of consolidation are identified. POS: [facility]
[2017-07-06] MEDS ORDERED: PROPOFOL 200 MG/20 ML VIAL ONE (14:31)
[2017-07-06] MEDS ORDERED: ePHEDrine/0.9% NaCl/PF SYRINGE 50 mg/10 ml ONE (14:31)
[2017-07-06] MEDS ORDERED: Dexamethasone 20 MG/5 ML VIAL ONE (14:31)
[2017-07-06] MEDS ORDERED: Ondansetron HCl/PF 4 MG/2 ML Vial ONE (14:31)
[2017-07-06] MEDS ORDERED: Glycopyrrolate 0.2 MG/ML 5 ML SYRINGE ONE (14:31)
[2017-07-06] MEDS ORDERED: Lidocaine 1% PF 5 ML VIAL ONE (14:31)
== END 2017-07-06 10:10 | disposition home or self-care (01) ==
LOC: SDC 05:41
PROVIDERS: ATTEND Surgery
PROC: 02HV33Z Insertion of Infusion Device into Superior Vena Cava, Percutaneous Approach (ICD-10-PCS; principal; 2017-07-06)
DX: C81.90 Hodgkin lymphoma, unspecified, unspecified site (principal); Z80.1 Family history of malignant neoplasm of trachea, bronchus and lung; Z82.49 Family history of ischemic heart disease and other diseases of the circulatory system; Z79.899 Other long term (current) drug therapy; Z88.0 Allergy status to penicillin; Z98.890 Other specified postprocedural states
CPT/HCPCS: 71045; 76001; C1788; J1100; J1170; J1642; J1956; J2001; J2250; J2405; J2704; J3010; S0020

== ENCOUNTER 2017-07-06 10:19 | Day surgery (SDC) | payer OTHER, SELFPAY ==
[2017-07-06] MEDS ORDERED: Fosaprepitant Dimeglumine 150 MG, Admixture Fee 1 EACH in Sodium Chloride 0.9% 250 ML 1... IVPB SCH (10:30)
[2017-07-06] MEDS ORDERED: ADMIXTURE FEE SLOW IVP SCH (10:45)
[2017-07-06] MEDS ORDERED: BLEOMYCIN SULFATE SLOW IVP SCH ×2 (10:45→11:45)
[2017-07-06] MEDS ORDERED: ADMIXTURE FEE IVPB SCH ×5 (10:45→12:15)
[2017-07-06] MEDS ORDERED: ADMIXTURE FEE IV SCH (10:45)
[2017-07-06] MEDS ORDERED: VINBLASTINE SULFATE IVPB SCH (10:45)
[2017-07-06] MEDS ORDERED: DOXORUBICIN IVPB SCH (10:45)
[2017-07-06] MEDS ORDERED: DACARBAZINE IV SCH (10:45)
[2017-07-06] MEDS ORDERED: Dexamethasone 10 MG, Ondansetron 2MG/ML MDV 10 MG, Admixture Fee 1 EACH in Sodium Chlor... IVPB SCH (10:45)
[2017-07-06] MEDS ORDERED: SODIUM CHLORIDE IV SCH (10:45)
[2017-07-06] MEDS ORDERED: SODIUM CHLORIDE IVPB SCH ×5 (10:45→12:15)
[2017-07-06] MEDS ORDERED: BLEOMYCIN SULFATE IVPB SCH ×4 (10:45→12:15)
[2017-07-06 10:57] VITALS: BP 110/50; TEMP 97.8
[2017-07-06] MEDS ORDERED: PRE FILLED SLOW IVP SCH (11:45)
[2017-07-06] MEDS ORDERED: Sodium Chloride 0.9% 40 ML ONE (11:48)
[2017-07-06] MEDS ORDERED: BLEOMYCIN SULFATE IJ SCH (12:15)
[2017-07-06] MEDS ORDERED: PRE FILLED IVPB SCH (12:15)
[2017-07-06] MEDS ORDERED: PRE FILLED IJ SCH (12:15)
== END 2017-07-06 17:49 | disposition home or self-care (01) ==
LOC: ONC/OP 10:19
PROVIDERS: ATTEND Internal Medicine Medical Oncology
DX: Z51.11 Encounter for antineoplastic chemotherapy (principal); C81.13 Nodular sclerosis Hodgkin lymphoma, intra-abdominal lymph nodes; Z88.0 Allergy status to penicillin; Z79.899 Other long term (current) drug therapy; Z80.1 Family history of malignant neoplasm of trachea, bronchus and lung; Z98.890 Other specified postprocedural states
CPT/HCPCS: 96367; 96411; 96413; 96415; 96417; A4216; J1100; J1453; J1642; J2405; J7050; J9000; J9040; J9360

== ENCOUNTER 2017-07-20 10:25 | Day surgery (SDC) | payer OTHER ==
[2017-07-20] MEDS ORDERED: Sodium Chloride 0.9% 40 ML ONE (10:40)
[2017-07-20] MEDS ORDERED: SODIUM CHLORIDE IVPB SCH ×4 (10:45→11:00)
[2017-07-20] MEDS ORDERED: Fosaprepitant Dimeglumine 150 MG, Admixture Fee 1 EACH in Sodium Chloride 0.9% 250 ML 1... IVPB SCH (10:45)
[2017-07-20] MEDS ORDERED: ADMIXTURE FEE IVPB SCH ×4 (10:45→11:00)
[2017-07-20] MEDS ORDERED: Dexamethasone 4 mg/ml Vial SLOW IVP SCH (10:45)
[2017-07-20] MEDS ORDERED: DOXORUBICIN IVPB SCH (10:45)
[2017-07-20] MEDS ORDERED: Ondansetron HCl/PF 4 MG/2 ML Vial IVP SCH (10:45)
[2017-07-20] MEDS ORDERED: DACARBAZINE IVPB SCH (11:00)
[2017-07-20] MEDS ORDERED: BLEOMYCIN SULFATE IVPB SCH (11:00)
[2017-07-20] MEDS ORDERED: VINBLASTINE SULFATE IVPB SCH (11:00)
[2017-07-20 11:06] VITALS: BP 109/65; TEMP 97.6
[2017-07-20] MEDS ORDERED: Dexamethasone 10 MG/ML VIAL SLOW IVP SCH (12:15)
== END 2017-07-20 16:30 | disposition home or self-care (01) ==
LOC: ONC/OP 10:25
PROVIDERS: ATTEND Internal Medicine Medical Oncology
DX: Z51.11 Encounter for antineoplastic chemotherapy (principal); C81.13 Nodular sclerosis Hodgkin lymphoma, intra-abdominal lymph nodes; Z88.0 Allergy status to penicillin; Z80.1 Family history of malignant neoplasm of trachea, bronchus and lung; Z98.890 Other specified postprocedural states
CPT/HCPCS: 96367; 96413; 96415; 96417; A4216; J1100; J1453; J1642; J2405; J7050; J9000; J9040; J9130; J9360

== ENCOUNTER 2017-08-03 09:25 | Day surgery (SDC) | payer OTHER ==
[2017-08-03] MEDS ORDERED: Sodium Chloride 0.9% 40 ML ONE (09:37)
[2017-08-03] MEDS ORDERED: SODIUM CHLORIDE 0.9% IVPB SCH ×4 (09:45→10:15)
[2017-08-03] MEDS ORDERED: Ondansetron PF 4 MG/2 ML Vial SLOW IVP SCH (09:45)
[2017-08-03] MEDS ORDERED: Dexamethasone 4 mg/ml Vial SLOW IVP SCH (09:45)
[2017-08-03] MEDS ORDERED: DOXORUBICIN IVPB SCH (09:45)
[2017-08-03] MEDS ORDERED: Fosaprepitant Dimeglumine 150 MG in Sodium Chloride 0.9% 250 ML 150 ML IVPB SCH (09:45)
[2017-08-03] MEDS ORDERED: VINBLASTINE SULFATE IVPB SCH ×2 (10:00→10:15)
[2017-08-03] MEDS ORDERED: DACARBAZINE IV SCH ×3 (10:00→10:45)
[2017-08-03] MEDS ORDERED: BLEOMYCIN SULFATE IVPB SCH (10:00)
[2017-08-03] MEDS ORDERED: SODIUM CHLORIDE 0.9% IV SCH ×3 (10:00→10:45)
== END 2017-08-03 15:23 | disposition home or self-care (01) ==
LOC: ONC/OP 09:25
PROVIDERS: ATTEND Internal Medicine Medical Oncology
DX: Z51.11 Encounter for antineoplastic chemotherapy (principal); C81.13 Nodular sclerosis Hodgkin lymphoma, intra-abdominal lymph nodes; Z88.0 Allergy status to penicillin; Z80.1 Family history of malignant neoplasm of trachea, bronchus and lung; Z79.899 Other long term (current) drug therapy
CPT/HCPCS: 96367; 96413; 96415; 96417; J1100; J1453; J1642; J2405; J7050; J9000; J9040; J9360

== ENCOUNTER 2017-08-17 08:59 | Day surgery (SDC) | payer OTHER ==
[2017-08-17] MEDS ORDERED: Sodium Chloride 0.9% 40 ML ONE (09:09)
[2017-08-17] MEDS ORDERED: BLEOMYCIN SULFATE IVPB SCH ×2 (09:15→09:45)
[2017-08-17] MEDS ORDERED: DOXORUBICIN IVPB SCH (09:15)
[2017-08-17] MEDS ORDERED: SODIUM CHLORIDE 0.9% IVPB SCH ×5 (09:15→09:45)
[2017-08-17] MEDS ORDERED: Dexamethasone 10 MG, Ondansetron 2MG/ML MDV 10 MG in Sodium Chloride 0.9% 50 ML IVPB SCH (09:15)
[2017-08-17] MEDS ORDERED: Fosaprepitant Dimeglumine 150 MG in Sodium Chloride 0.9% 250 ML 150 ML IVPB SCH (09:15)
[2017-08-17] MEDS ORDERED: SODIUM CHLORIDE 0.9% IV SCH (09:30)
[2017-08-17] MEDS ORDERED: DACARBAZINE IV SCH (09:30)
[2017-08-17] MEDS ORDERED: VINBLASTINE SULFATE IVPB SCH ×2 (09:30→09:45)
[2017-08-17] MEDS ORDERED: Ondansetron HCl/PF 4 MG/2 ML Vial SLOW IVP SCH (09:45)
[2017-08-17] MEDS ORDERED: Dexamethasone 10 MG/ML VIAL SLOW IVP SCH (09:45)
[2017-08-17 10:25] VITALS: BP 108/53; TEMP 98.1
== END 2017-08-17 15:42 | disposition home or self-care (01) ==
LOC: ONC/OP 08:59
PROVIDERS: ATTEND Internal Medicine Medical Oncology
DX: Z51.11 Encounter for antineoplastic chemotherapy (principal); C81.13 Nodular sclerosis Hodgkin lymphoma, intra-abdominal lymph nodes; D63.0 Anemia in neoplastic disease; Z79.899 Other long term (current) drug therapy; Z88.0 Allergy status to penicillin; Z95.828 Presence of other vascular implants and grafts; Z80.1 Family history of malignant neoplasm of trachea, bronchus and lung
CPT/HCPCS: 96367; 96375; 96411; 96413; 96415; 96417; A4216; J1100; J1453; J1642; J2405; J7050; J9000; J9040; J9360

== ENCOUNTER 2017-08-29 07:17 | Outpatient (CLI) | payer OTHER ==
--- NOTE | 2017-08-29 12:41 | PFT ---
PATIENT HISTORY: HEIGHT: 72 WEIGHT:182 SMOKER: NO HOW LONG: PACKS PER DAY PRODUCTIVE COUGH: LUNG DISEASE: PHYSICIAN INTERPRETATION FINAL REPORT: The FEV1 is 2.24 liters which is 64% predicted, FVC is 3.87 liters which 79% predicted. There is no reversibility after bronchodilatation. The flow volume loop is obstructed in appearance. Total lung capacity is 5.59 liters which is 75% predicted residual volume is 1.48, which is 50% predicted. DLCO was 17.73 which is 64% predicted. IMPRESSION: Compared to previous study from 06/27/2017, the DLCO was mildly improved. The FEV1 and FVC are somewhat increased from that study. Continued obstructive lung disease is noted. Co Founder And Director: Dry House Operator: MILTON WILKINSON
== END 2017-08-29 07:18 | disposition home or self-care (01) ==
LOC: CP 07:17
PROVIDERS: ATTEND Internal Medicine Medical Oncology
DX: C81.13 Nodular sclerosis Hodgkin lymphoma, intra-abdominal lymph nodes (principal); J44.9 Chronic obstructive pulmonary disease, unspecified; Z79.899 Other long term (current) drug therapy
CPT/HCPCS: 94060; 94727; 94729

== ENCOUNTER 2017-08-31 09:34 | Day surgery (SDC) | payer OTHER ==
[2017-08-31] MEDS ORDERED: Dexamethasone 10 MG/ML VIAL SLOW IVP SCH (09:45)
[2017-08-31] MEDS ORDERED: SODIUM CHLORIDE 0.9% IVPB SCH ×6 (09:45→10:15)
[2017-08-31] MEDS ORDERED: DOXORUBICIN IVPB SCH ×2 (09:45→10:15)
[2017-08-31] MEDS ORDERED: Fosaprepitant Dimeglumine 150 MG in Sodium Chloride 0.9% 250 ML 150 ML IVPB SCH (09:45)
[2017-08-31] MEDS ORDERED: DACARBAZINE IV SCH ×2 (10:00→10:15)
[2017-08-31] MEDS ORDERED: Ondansetron HCl/PF 4 MG/2 ML Vial IVP SCH (10:00)
[2017-08-31] MEDS ORDERED: SODIUM CHLORIDE 0.9% IV SCH ×2 (10:00→10:15)
[2017-08-31] MEDS ORDERED: VINBLASTINE SULFATE IVPB SCH ×2 (10:00→10:15)
[2017-08-31] MEDS ORDERED: BLEOMYCIN SULFATE IVPB SCH ×2 (10:00→10:15)
[2017-08-31] MEDS ORDERED: Sodium Chloride 0.9% 50 ML ONE (10:04)
[2017-08-31 13:42] VITALS: BP 114/57; TEMP 98.7
== END 2017-08-31 16:03 | disposition home or self-care (01) ==
LOC: ONC/OP 09:34
PROVIDERS: ATTEND Internal Medicine Medical Oncology
DX: Z51.11 Encounter for antineoplastic chemotherapy (principal); C81.13 Nodular sclerosis Hodgkin lymphoma, intra-abdominal lymph nodes; D63.0 Anemia in neoplastic disease; Z88.0 Allergy status to penicillin
CPT/HCPCS: 96367; 96375; 96413; 96417; A4216; J1100; J1453; J1642; J2405; J7050; J9000; J9040; J9360

== ENCOUNTER 2017-09-07 08:02 | Outpatient (CLI) | payer OTHER ==
--- NOTE | 2017-09-07 14:09 | PET ---
PET CT: HISTORY: 57-year-old male with Hodgkin's lymphoma (classic nodular sclerosing type) diagnosed on a left axilla ry lymph ameena biopsy on 06/09/17. Patient's last chemotherapy was 1 week ago. Exam requested for res taging. TECHNIQUE: PET scanning with CT attenuation correction was performed from the base of the brain through the prox imal thighs following the intravenous administration of 10.8 mCi F18-FDG in the left antecubital jeff a. Imaging was performed after an uptake interval of 52 minutes. COMPARISON: PET CT dated 07/05/17. FINDINGS: There is residual hypermetabolic activity noted in the bilateral cervical lymph nodes and in a single right paratracheal mediastinal lymph node on the current exam. The maximum QSUV is in the left cervi caroline lymph node measuring 5.7. The remainder of the hypermetabolic lymph nodes noted on the previous exam demonstrate interval resol ution with no uptake above background activity. There has been resolution of the hypermetabolic lesions in the skeleton. Activity in the left lower l obe mass-like consolidation is greater than the mediastinal blood flow, but less than that of the jefry er. Activity in the spleen is also greater than the mediastinum and less than that of the liver. No new foci of abnormal FDG localization are identified. No hypermetabolic pulmonary nodules, liver, adrenal, or skeletal lesions are identified. The CT scan used for attenuation correction demonstrates no evidence of pleural effusions or ascites. IMPRESSION: Partial response to therapy since 07/05/17 with a Deauville score of 4. POS: [facility]
== END 2017-09-07 08:03 | disposition home or self-care (01) ==
LOC: PET 08:02
PROVIDERS: ATTEND Internal Medicine Medical Oncology
DX: C81.13 Nodular sclerosis Hodgkin lymphoma, intra-abdominal lymph nodes (principal)
CPT/HCPCS: 78815; A9552

== ENCOUNTER 2017-10-26 10:04 | Day surgery (SDC) | payer OTHER, SELFPAY ==
[2017-10-26] MEDS ORDERED: Sodium Chloride 0.9% 50 ML ONE (10:25)
[2017-10-26] MEDS ORDERED: Ondansetron HCl/PF 4 MG/2 ML Vial IVP SCH (10:45)
[2017-10-26] MEDS ORDERED: Dexamethasone 10 MG/ML VIAL SLOW IVP SCH (10:45)
[2017-10-26] MEDS ORDERED: Fosaprepitant Dimeglumine 150 MG in Sodium Chloride 0.9% 250 ML 150 ML IVPB SCH (11:00)
[2017-10-26] MEDS ORDERED: DOXORUBICIN IVPB SCH (11:30)
[2017-10-26] MEDS ORDERED: VINBLASTINE SULFATE IVPB SCH (11:30)
[2017-10-26] MEDS ORDERED: SODIUM CHLORIDE 0.9% IVPB SCH ×2 (11:30)
[2017-10-26] MEDS ORDERED: DACARBAZINE IV SCH (11:30)
[2017-10-26] MEDS ORDERED: SODIUM CHLORIDE 0.9% IV SCH (11:30)
[2017-10-26 11:39] VITALS: BP 114/71; TEMP 97.4
[2017-10-27] MEDS ORDERED: Pegfilgrastim 6 MG/0.6 ML Delivery Kit SQ SCH (11:00)
== END 2017-10-26 16:47 | disposition home or self-care (01) ==
LOC: ONC/OP 10:04
PROVIDERS: ATTEND Internal Medicine Medical Oncology
DX: Z51.11 Encounter for antineoplastic chemotherapy (principal); C81.13 Nodular sclerosis Hodgkin lymphoma, intra-abdominal lymph nodes; Z88.0 Allergy status to penicillin
CPT/HCPCS: 96372; 96375; 96413; 96415; 96417; 99211; A4216; G0463; J1100; J1453; J1642; J2405; J7050; J9000; J9042; J9360

== ENCOUNTER 2017-11-03 12:46 | Outpatient (CLI) | payer OTHER ==
--- NOTE | 2017-11-03 16:08 | NM ---
MUGA SCAN: Date: 11/03/17 HISTORY: Nodular sclerosis, Hodgkins lymphoma, intra-abdominal. RADIOPHARMACEUTICAL: 27 mCi technetium-99m labeled RBCs injected intravenously. FINDINGS: The left ventricular ejection fraction measures 77%. The wall motion is normal. IMPRESSION: Left ventricular ejection fraction is 77%. POS: [facility]
[2017-11-03] MEDS ORDERED: Heparin 1,000 UNITS/ML VIAL ONE (18:05)
== END 2017-11-03 12:47 | disposition home or self-care (01) ==
LOC: NM 12:46
PROVIDERS: ATTEND Internal Medicine Medical Oncology
DX: C81.13 Nodular sclerosis Hodgkin lymphoma, intra-abdominal lymph nodes (principal)
CPT/HCPCS: 78472; A9604; J1644

== ENCOUNTER 2017-11-09 10:26 | Day surgery (SDC) | payer OTHER, SELFPAY ==
[2017-11-09] MEDS ORDERED: Sodium Chloride 0.9% 30 ML ONE (10:40)
[2017-11-09] MEDS ORDERED: DOXORUBICIN IVPB SCH (10:45)
[2017-11-09] MEDS ORDERED: SODIUM CHLORIDE 0.9% IVPB SCH ×3 (10:45→11:00)
[2017-11-09] MEDS ORDERED: Dexamethasone 10 MG/ML VIAL SLOW IVP SCH (10:45)
[2017-11-09] MEDS ORDERED: DACARBAZINE IVPB SCH (10:45)
[2017-11-09] MEDS ORDERED: Pegfilgrastim 6 MG/0.6 ML Delivery Kit SQ SCH (10:45)
[2017-11-09] MEDS ORDERED: Ondansetron HCl/PF 4 MG/2 ML Vial IVP SCH (10:45)
[2017-11-09 10:49] VITALS: BP 117/75; TEMP 98
[2017-11-09] MEDS ORDERED: VINBLASTINE SULFATE IVPB SCH (11:00)
[2017-11-09] MEDS ORDERED: Dexamethasone 10 MG, Ondansetron 2MG/ML MDV 10 MG in Sodium Chloride 0.9% 50 ML IVPB SCH (11:00)
== END 2017-11-09 17:12 | disposition home or self-care (01) ==
LOC: ONC/OP 10:26
PROVIDERS: ATTEND Internal Medicine Medical Oncology
DX: Z51.11 Encounter for antineoplastic chemotherapy (principal); C81.13 Nodular sclerosis Hodgkin lymphoma, intra-abdominal lymph nodes; Z79.899 Other long term (current) drug therapy; Z88.0 Allergy status to penicillin
CPT/HCPCS: 96367; 96377; 96413; 96415; 96417; A4216; J1100; J1453; J1642; J2405; J2505; J7050; J9000; J9042; J9130; J9360

== ENCOUNTER 2017-11-23 08:07 | Day surgery (SDC) | payer OTHER ==
[2017-11-23] MEDS ORDERED: Sodium Chloride 0.9% 30 ML ONE (08:18)
[2017-11-23] MEDS ORDERED: Pegfilgrastim 6 MG/0.6 ML Delivery Kit SQ SCH (08:30)
[2017-11-23] MEDS ORDERED: Dexamethasone 10 MG/ML VIAL SLOW IVP SCH (08:30)
[2017-11-23] MEDS ORDERED: Ondansetron HCl/PF 4 MG/2 ML Vial IVP SCH (08:30)
[2017-11-23] MEDS ORDERED: VINBLASTINE SULFATE IVPB SCH (08:45)
[2017-11-23] MEDS ORDERED: SODIUM CHLORIDE 0.9% IVPB SCH ×3 (08:45)
[2017-11-23] MEDS ORDERED: DACARBAZINE IVPB SCH (08:45)
[2017-11-23] MEDS ORDERED: DOXORUBICIN IVPB SCH (08:45)
[2017-11-23] MEDS ORDERED: Dexamethasone 10 MG, Ondansetron 2MG/ML MDV 10 MG in Sodium Chloride 0.9% 50 ML IVPB SCH (09:00)
[2017-11-23 09:23] VITALS: BP 112/60; TEMP 98.3
== END 2017-11-23 18:07 | disposition home or self-care (01) ==
LOC: ONC/OP 08:07
PROVIDERS: ATTEND Internal Medicine Medical Oncology
DX: Z51.11 Encounter for antineoplastic chemotherapy (principal); C81.13 Nodular sclerosis Hodgkin lymphoma, intra-abdominal lymph nodes; D64.9 Anemia, unspecified; Z88.0 Allergy status to penicillin
CPT/HCPCS: 96367; 96375; 96377; 96413; 96415; 96417; A4216; J1100; J1453; J1642; J2405; J2505; J7050; J9000; J9042; J9130; J9360

== ENCOUNTER 2017-12-07 09:26 | Day surgery (SDC) | payer OTHER ==
[2017-12-07] MEDS ORDERED: Sodium Chloride 0.9% 30 ML ONE (09:46)
[2017-12-07] MEDS ORDERED: Dexamethasone 10 MG, Ondansetron 2MG/ML MDV 10 MG in Sodium Chloride 0.9% 50 ML IVPB SCH (10:15)
[2017-12-07 10:30] VITALS: BP 110/69; TEMP 98.2
[2017-12-07] MEDS ORDERED: SODIUM CHLORIDE 0.9% IVPB SCH ×3 (10:30)
[2017-12-07] MEDS ORDERED: DOXORUBICIN IVPB SCH (10:30)
[2017-12-07] MEDS ORDERED: DACARBAZINE IVPB SCH (10:30)
[2017-12-07] MEDS ORDERED: VINBLASTINE SULFATE IVPB SCH (10:30)
[2017-12-07] MEDS ORDERED: Pegfilgrastim 6 MG/0.6 ML Delivery Kit SQ SCH (11:15)
== END 2017-12-07 16:22 | disposition home or self-care (01) ==
LOC: ONC/OP 09:26
PROVIDERS: ATTEND Internal Medicine Medical Oncology
DX: Z51.11 Encounter for antineoplastic chemotherapy (principal); C81.13 Nodular sclerosis Hodgkin lymphoma, intra-abdominal lymph nodes; D64.9 Anemia, unspecified; Z88.0 Allergy status to penicillin
CPT/HCPCS: 96367; 96375; 96377; 96411; 96413; 96415; 96417; A4216; J1100; J1453; J1642; J2405; J2505; J7050; J9000; J9042; J9130; J9360

== ENCOUNTER 2017-12-11 13:59 | Outpatient (CLI) | payer OTHER ==
--- NOTE | 2017-12-11 15:01 | ULT ---
SOFT TISSUE SONOGRAM LEFT AXILLA: Date: 12/11/17 HISTORY: Left axillary mass. Suspected lymphocele. Hodgkins lymphoma. FINDINGS: Sonographic evaluation of the left axilla in the region of palpable concern shows a well circumscribe d anechoic structure with posterior shadowing. It measures up to 4.6 cm length x 3.4 cm width x 2.9 c m depth. No solid components are apparent. IMPRESSION: Large cyst left axilla in region of palpable concern. In an appropriate clinical setting, it is consi stent with a lymphocele. POS: [facility]
== END 2017-12-11 14:00 | disposition home or self-care (01) ==
LOC: SCSULT 13:59
PROVIDERS: ATTEND Internal Medicine Medical Oncology
DX: C81.13 Nodular sclerosis Hodgkin lymphoma, intra-abdominal lymph nodes (principal); R22.9 Localized swelling, mass and lump, unspecified
CPT/HCPCS: 76999

== ENCOUNTER 2017-12-21 10:41 | Day surgery (SDC) | payer OTHER ==
[2017-12-21] MEDS ORDERED: Sodium Chloride 0.9% 40 ML ONE (10:56)
[2017-12-21] MEDS ORDERED: Ondansetron HCl/PF 4 MG/2 ML Vial SLOW IVP SCH (11:00)
[2017-12-21] MEDS ORDERED: SODIUM CHLORIDE 0.9% IVPB SCH ×4 (11:00→12:45)
[2017-12-21] MEDS ORDERED: SODIUM CHLORIDE 0.9% IV SCH ×4 (11:00→12:45)
[2017-12-21] MEDS ORDERED: VINBLASTINE SULFATE IVPB SCH ×3 (11:00→12:45)
[2017-12-21] MEDS ORDERED: DOXORUBICIN IVPB SCH (11:00)
[2017-12-21] MEDS ORDERED: Dexamethasone 10 MG/ML VIAL SLOW IVP SCH (11:00)
[2017-12-21] MEDS ORDERED: DACARBAZINE IV SCH ×3 (11:00→12:45)
[2017-12-21] MEDS ORDERED: Pegfilgrastim 6 MG/0.6 ML Delivery Kit SQ SCH (11:15)
[2017-12-21] MEDS ORDERED: Dexamethasone 10 MG, Ondansetron 2MG/ML MDV 10 MG in Sodium Chloride 0.9% 50 ML IVPB SCH (11:30)
[2017-12-21] MEDS ORDERED: BRENTUXIMAB VEDOTIN IV SCH (12:00)
[2017-12-21 12:12] VITALS: BP 123/67; TEMP 98
== END 2017-12-21 16:48 | disposition home or self-care (01) ==
LOC: ONC/OP 10:41
PROVIDERS: ATTEND Internal Medicine Medical Oncology
DX: Z51.11 Encounter for antineoplastic chemotherapy (principal); C81.13 Nodular sclerosis Hodgkin lymphoma, intra-abdominal lymph nodes; D64.9 Anemia, unspecified; Z88.0 Allergy status to penicillin
CPT/HCPCS: 96367; 96377; 96411; 96413; 96415; 96417; A4216; J1100; J1453; J1642; J2405; J2505; J7050; J9000; J9042; J9360

== ENCOUNTER 2018-01-04 09:31 | Day surgery (SDC) | payer OTHER ==
[2018-01-04] MEDS ORDERED: Sodium Chloride 0.9% 30 ML ONE (09:38)
[2018-01-04] MEDS ORDERED: Dexamethasone 10 MG, Ondansetron 2MG/ML MDV 10 MG, Admixture Fee 1 EACH in Sodium Chlor... IVPB SCH (09:45)
[2018-01-04] MEDS ORDERED: DOXORUBICIN IVPB SCH (09:45)
[2018-01-04] MEDS ORDERED: SODIUM CHLORIDE 0.9% IVPB SCH (09:45)
[2018-01-04 09:57] VITALS: BP 119/70; TEMP 97.7
[2018-01-04] MEDS ORDERED: ADMIXTURE FEE IVPB SCH (10:00)
[2018-01-04] MEDS ORDERED: SODIUM CHLORIDE 0.9% IV SCH (10:00)
[2018-01-04] MEDS ORDERED: SODIUM CHLORIDE IVPB SCH (10:00)
[2018-01-04] MEDS ORDERED: VINBLASTINE SULFATE IVPB SCH (10:00)
[2018-01-04] MEDS ORDERED: DACARBAZINE IV SCH (10:00)
[2018-01-04] MEDS ORDERED: Pegfilgrastim 6 MG/0.6 ML Delivery Kit SQ SCH (10:00)
== END 2018-01-04 16:41 | disposition home or self-care (01) ==
LOC: ONC/OP 09:31
PROVIDERS: ATTEND Internal Medicine Medical Oncology
DX: Z51.11 Encounter for antineoplastic chemotherapy (principal); C81.13 Nodular sclerosis Hodgkin lymphoma, intra-abdominal lymph nodes; Z79.899 Other long term (current) drug therapy; Z88.0 Allergy status to penicillin
CPT/HCPCS: 96367; 96377; 96413; 96415; 96417; A4216; J1100; J1453; J1642; J2405; J2505; J7050; J9000; J9360

== ENCOUNTER → 2018-01-18 | Day surgery (SDC) | payer OTHER ==
[~2018-01-18] MED LIST: DACARBAZINE IV SCH; DOXORUBICIN IVPB SCH; Dexamethasone 10 MG, Ondansetron 2MG/ML MDV 10 MG, Admixture Fee 1 EACH in Sodium Chlor... IVPB SCH; Pegfilgrastim 6 MG/0.6 ML Delivery Kit SQ SCH; SODIUM CHLORIDE 0.9% IV SCH; SODIUM CHLORIDE 0.9% IVPB SCH; Sodium Chloride 0.9% 40 ML ONE; VINBLASTINE SULFATE IVPB SCH
[2018-01-18 12:42] VITALS: BP 118/72; TEMP 98
== END ==
LOC: ONC/OP 11:00
PROVIDERS: ATTEND Internal Medicine Medical Oncology
DX: Z51.11 Encounter for antineoplastic chemotherapy (principal); C81.13 Nodular sclerosis Hodgkin lymphoma, intra-abdominal lymph nodes; Z88.0 Allergy status to penicillin; D64.9 Anemia, unspecified
CPT/HCPCS: 96367; 96377; 96413; 96415; 96417; A4216; J1100; J1453; J1642; J2405; J2505; J7050; J9000; J9042; J9360

== ENCOUNTER 2018-02-20 12:06 | Outpatient (CLI) | payer OTHER ==
--- NOTE | 2018-02-20 15:53 | PET ---
PT CT FROM THE SKULL BASE THROUGH THE MID THIGHS: INDICATIONS: History of Hodgkin's lymphoma. Restaging, status post chemotherapy. COMPARISON: Prior examination dated 09/07/2017. RADIOPHARMACEUTICAL: 0.4 millicuries F18 FDG IV. TECHNIQUE: Multiple PET CT images were obtained from the skull base through the mid thighs following the introdu ction of the radiopharmaceutical. The CT images were obtained for attenuation correction purposes on ly. FINDINGS: Biodistribution: The bio distribution for the examination appears acceptable. Head and neck: No hypermetabolic soft tissue mass or lymphadenopathy is evident. The numerous scatt ered bilateral cervical hypermetabolic lymph nodes have intervally decreased in size with no associat ed hypermetabolic uptake. Thorax: There is a left IJ chest wall port. There is post surgical change of a left axillary lymph node biopsy. There are a few shotty appearing, nonpathologically enlarged, nonhypermetabolic lymph n odes within the left axillary region, which are stable to the prior exam. Small postoperative fluid collection within the left axially region has decreased in size with no associated hypermetabolic act ivity. The hypermetabolic right paratracheal lymph node seen on the comparison examination has inter vally resolved. There is no residual hypermetabolic activity associated with this lymph node. The a ir space consolidation within the left lower lobe demonstrates reduced metabolic uptake, with a peak SUV value of 1.7 and a mean value of 1.52. The blood pool of the mediastinum measured 2.11 and has a peak value of 1.91 as the mean value. The peak SUV uptake within the liver was 3.05, and the mean u ptake was 2.86. No new hypermetabolic pulmonary nodule or pleural effusion is demonstrated. ABDOMEN AND PELVIS: No hypermetabolic lymph nodes are evident. The spleen measures 15.5 cm, where p reviously it measured 17 cm. The metabolic activity of the spleen is 2.16 with a mean value of 1.89. This mirrors that of the surrounding blood pool. Skin and osseous structures: No hypermetabolic skin or osseous lesion is identified. A small sclero tic focus is seen within the T10 vertebral body without associated hypermetabolic activity. IMPRESSION: 1. No residual uptake seen within the cervical or mediastinal lymph nodes when compared to the most recent comparison examination, dated 09/07/2017. No hypermetabolic activity seen involving the splee n. There is a reduction in the size of the spleen with the background activity of the spleen mirrori ng that of the surrounding blood pool. There are no hypermetabolic skeletal lesions now identified. 2. Findings consistent with a complete response to therapy since , with a Deauville score o f 1. POS: [facility]
== END 2018-02-20 12:07 | disposition home or self-care (01) ==
LOC: PET 12:06
PROVIDERS: ATTEND Internal Medicine Medical Oncology
DX: C85.90 Non-Hodgkin lymphoma, unspecified, unspecified site (principal)
CPT/HCPCS: 78815; A9552

== ENCOUNTER 2018-06-12 08:32 | Outpatient (CLI) | payer OTHER ==
--- NOTE | 2018-06-12 11:29 | CT ---
CT CHEST WITH CONTRAST: CT ABDOMEN WITH CONTRAST: CT PELVIS WITH CONTRAST: HISTORY: C81.13, nodular sclerosis Hodgkin's lymphoma. COMPARISON: PET CT from 02/20/2018. FINDINGS: There has been interval size decrease in the left supraclavicular lymph nodes, now measuring approxim ately 3 mm in short axis, previously 4 mm, on axial image 4. No mediastinal adenopathy. No axillary adenopathy. Right paratracheal lymph node has a normal fatty hilum. No abnormal new round lymph nodes. The left paratracheal lymph node now has a fatty hilum and measures 8 mm in short axis, previously 9 mm. A series of cysts in hepatic segment 8. No retroperitoneal adenopathy. The spleen measures approxim ately 15 cm in craniocaudad length. The pancreas is unremarkable. The portal vein is patent. Aorti c contour is nonaneurysmal. The right common iliac lymph ameena chain has decreased in size. On axial image 97, there is a lymph node measuring 8 mm in short axis. This lymph node on the 02/20/2018 examination measures approximat olivier 11 mm in short axis. No new adenopathy. No dilated loops of large or small bowel. Mildly thick ened sigmoid colon submucosa. The appendix is visualized and is normal. There is a distal anterior aortocaval lymph node, which me asures 9 mm in short axis, on axial image 86, also previously 9 mm. A left retroperitoneal periaortic, perirenal lymph node, axial image 74, measures 8 mm in short axis, also previously 8 mm. No new mesenteric lymph nodes. Port catheter is in good position. No suspicious osteolytic or osteoblastic lesions. The consolidation and bronchiectasis in the lingula and superior segment left lower lobe is similar, likely post treatment/post infectious in nature. No new suspicious pulmonary nodules. IMPRESSION: 1. Interval size decrease or stability of lymph ameena chains above and below the diaphragm with inde x lesions as above. 2. No new or enlarging adenopathy. POS: [facility]
== END 2018-06-12 08:33 | disposition home or self-care (01) ==
LOC: SCSCT 08:32
PROVIDERS: ATTEND Internal Medicine Medical Oncology
DX: C81.13 Nodular sclerosis Hodgkin lymphoma, intra-abdominal lymph nodes (principal); J98.6 Disorders of diaphragm
CPT/HCPCS: 71260; 74177

== ENCOUNTER 2019-03-12 14:21 | Outpatient (CLI) | payer OTHER ==
--- NOTE | 2019-03-12 14:35 | PET ---
Exam: PET SCAN WITH CT ATTENUATION CORRECTION: HISTORY: Nodular sclerosis, classic Hodgkin's lymphoma. COMPARISON: 02/20/2018. CORRELATION: Chest, abdomen, and pelvis CT 06/12/2018. TECHNIQUE: PET scan with CT attenuation correction was performed from the base of the brain to the pr oximal thighs following the intravenous administration of 12.7 mCi of [id number]. FINDINGS: Head and neck: No abnormal FDG localization. Chest: No abnormal FDG localization. CT used for attenuation correction demonstrates postsurgical makeda nge in the left axilla. There is stable consolidation without FDG avidity involving the left lower lobe. Maximum SUV is 1.7 (previously 1.7). Abdomen/Pelvis: No abnormal FDG localization. Osseous structures: No abnormal FDG localization. IMPRESSION: 1. No abnormal FDG localization. 2. Deauville score of 1. Transcribed Date/Time: 03/12/2019 3:09 PM
== END 2019-03-12 14:22 | disposition home or self-care (01) ==
LOC: PET 14:21
PROVIDERS: ATTEND Internal Medicine Medical Oncology
DX: C85.90 Non-Hodgkin lymphoma, unspecified, unspecified site (principal)
CPT/HCPCS: 78815; A9552

== ENCOUNTER 2019-05-07 06:04 | Outpatient (CLI) | payer OTHER ==
[2019-05-07 11:37] LABS: #Eosinphils 0.9 thou/uL (0.0-0.7); #Lymphocytes 1.6 thou/uL (1.20-3.40); #Monocytes 0.6 thou/uL (0.11-0.59); #Neutrophils 5.1 thou/uL (1.40-6.50); %Basophils 0.6 % (0.0-1.0); %Eosinophils 10.6 % (0.0-10.0); %Lymphocytes 19.7 % (21.0-51.0); %Monocytes 7.5 % (0.0-10.0); %Neutrophils 61.7 % (42.0-75.0); Hemoglobin 14.9 g/dL (14.0-18.0); Mean Corpuscular HGB CONC 32.7 g/dL (32.0-36.0); Mean Corpuscular Hemoglobin 29.9 pg (27.0-31.0); Mean Corpuscular Volume 91.4 fL (78.0-98.0); Mean Platelet Volume 8.2 fL (7.4-10.4); Platelet Count 215 thou/uL (130-400); RBC Distribution Width 11.8 % (11.5-14.5); Red Blood Cell (RBC) Count 4.99 mill/uL (4.70-6.10); White Blood Cell (WBC) Count 8.2 thou/uL (4.8-10.8)
[2019-05-07 11:48] LABS: ALT (SGPT) 23 U/L (8-55); AST (SGOT) 24 U/L (5-34); Albumin 4.6 g/dL (3.5-5.0); Alkaline Phosphatase 105 U/L (40-110); Anion Gap 9 mmol/L (10-20); BUN (Urea Nitrogen) 15 mg/dL (8.4-25.7); Bilirubin, Total 0.5 mg/dL (0.2-1.2); Calc. Creatinine Clearance 0 mL/min (70-130); Calcium 9.9 mg/dL (7.8-10.44); Carbon Dioxide 32 mmol/L (22-29); Chloride 103 mmol/L (98-107); Estimated GFR-MDRD Greater than 90; Glucose 105 mg/dL (70-105); Protein, Total 7.6 g/dL (6.0-8.3); Sodium 139 mmol/L (136-145)
== END 2019-05-07 06:05 | disposition home or self-care (01) ==
LOC: LABBT 06:04
PROVIDERS: ATTEND Surgery
DX: Z01.812 Encounter for preprocedural laboratory examination (principal); C85.90 Non-Hodgkin lymphoma, unspecified, unspecified site
CPT/HCPCS: 80053; 85025

== ENCOUNTER 2019-05-10 05:46 | Day surgery (SDC) | payer OTHER ==
[2019-05-07 09:05] VITALS: BMI 27.8
[2019-05-10] MEDS ORDERED: Levofloxacin 500 mg/D5W 100 ml Premix Bag ONE (06:40)
[2019-05-10] MEDS ORDERED: Lidocaine 2% w/Epinephrine 1:200K 20 ML VIAL ONE (06:49)
[2019-05-10] MEDS ORDERED: Bupivacaine 0.25% HCL 30 ML VIAL ONE (06:49)
[2019-05-10] MEDS ORDERED: Midazolam HCl 2 mg/2 ml Vial ONE ×2 (06:51→08:11)
--- NOTE | 2019-05-10 09:35 | OP ---
DATE OF PROCEDURE: 05/10/2019 PREOPERATIVE DIAGNOSIS: Completed chemo. PROCEDURE PERFORMED: Removal of MediPort. INDICATIONS: A 59-year-old male, who required MediPort for Hodgkin's lymphoma. He has completed his treatment. No longer requires the MediPort. FINDINGS: Intact system. DESCRIPTION OF PROCEDURE: After informed consent was obtained, the patient was taken to the operating room, given total IV anesthesia, placed in supine position. His chest was prepped and draped in usual fashion. Local anesthesia was infiltrated subcutaneously and deep. A transverse incision was performed through the old scar. Subcutaneous divided sharply. The capsule was incised. The sutures were removed. The MediPort was removed. The tract was occluded with 3-0 Vicryl [id number]. Hemostasis was achieved electrocautery. Subcutaneous was reapproximated with interrupted 3-0 Vicryl. Skin was closed with a running subcuticular 4-0 Rapide. Steri-Strips applied. Sterile bandage applied. The patient tolerated the procedure well, transferred to Recovery in good condition. Sponge and needle count verified correct x2. Job ID: [id number]
[2019-05-10] MEDS ORDERED: PROPOFOL 200 MG/20 ML VIAL ONE (10:55)
== END 2019-05-10 09:35 | disposition home or self-care (01) ==
LOC: SDC 05:46
PROVIDERS: ATTEND Surgery
PROC: 02HV33Z Insertion of Infusion Device into Superior Vena Cava, Percutaneous Approach (ICD-10-PCS; principal; 2019-05-10)
DX: Z45.2 Encounter for adjustment and management of vascular access device (principal); Z88.0 Allergy status to penicillin
CPT/HCPCS: J1642; J1956; J2250; J2704; S0020

== ENCOUNTER 2020-04-24 11:27 | Outpatient (CLI) | payer OTHER ==
--- NOTE | 2020-04-24 12:01 | RAD ---
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 Lungs:Clear of acute process. No confluent pneumonia, overt edema, pleural effusion, or other acute process. IMPRESSION: No significant acute intrathoracic disease.
== END 2020-04-24 11:28 | disposition home or self-care (01) ==
LOC: BICRAD 11:27
PROVIDERS: ATTEND Internal Medicine Medical Oncology
DX: C81.13 Nodular sclerosis Hodgkin lymphoma, intra-abdominal lymph nodes (principal)
CPT/HCPCS: 71046